=== PATIENT | female | born 1980 | race Caucasian/White ===

== ENCOUNTER 2019-11-29 20:02 | Emergency (ER) | payer BC ==
[~2019-11-29] VITALS: Ht 152.4 cm; Wt 56.7 kg
[2019-11-29 20:15] VITALS: Ht 152.4 cm; Wt 56.7 kg
[2019-11-30 00:19] VITALS: BP 115/69
== END 2019-11-30 00:19 | disposition home or self-care (01) ==
LOC: ED 20:02
DX: S30.0XXA Contusion of lower back and pelvis, initial encounter (principal); S60.221A Contusion of right hand, initial encounter; W18.30XA Fall on same level, unspecified, initial encounter; Y93.89 Activity, other specified; Y92.89 Other specified places as the place of occurrence of the external cause; Y99.8 Other external cause status
CPT/HCPCS: J1885; J2270; Q0092; Q0162